=== PATIENT | male | born 1955 | race Caucasian/White ===

== ENCOUNTER 2017-04-16 16:20 | Observation (INO) | payer OTHER ==
--- NOTE | ~2017-04-16 | DS ---
Discharge Summary [facility] [address] [place]. [address] NAME: EMILY FERGUSON : 57 STATUS : DIS José Luis PAT#: [id number] AGE: 62 ADM/REG DATE : 04/16/17 MR#: [id number] REPORT SERV DATE: 04/18/17 DICTATED BY: ERIN CHRIS DATE: 04/17/17 REPORT STATUS : Draft TRANSCRIBED BY: MODL DATE: 04/17/17 ADMISSION DATE: 04/16/2017 DISCHARGE DATE: 04/17/2017 PRINCIPAL DIAGNOSIS: Chest pain due to psychological stress. SECONDARY DIAGNOSES: Elevated blood pressure without hypertension and near syncope, headache. HISTORY OF PRESENT ILLNESS: Please see Dr. Verduzco's dictation on 04/16/2017. HOSPITAL COURSE: Admitted with an episode of chest pain that was very sharp radiating between his shoulder blades and reproducible with palpation, associated with a headache. Upon arrival to emergency department, he had a negative EKG, negative troponins, and a negative CT scan of the brain, and for unclear indications and negative CT of the abdomen he was admitted for a stress test; however, upon talking to him on the morning of 04/17/2017 I was much more concerned about the possibility of dissecting aorta versus pulmonary embolus versus pericarditis given the reproducibility and location, quality, and reproducibility of the pain. A CTA was done on a stat basis which actually was found to be negative; however, it was also seen that he had virtually no coronary calcification putting him at extreme low risk for myocardial ischemia and no further cardiac workup was therefore indicated. 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 It was felt that it would be best to take a week off from work prior to starting back, but no further medication prescriptions were necessary. Blood pressure had been better. He felt much better on 04/17/2017 and he was released following up with [facility] Solano in one to two weeks. DICTATED BY: Steph Cruz/RUFINO Erin Chris M.D. / [id number] CC: Steph Cruz M.D.
--- NOTE | ~2017-04-16 | HP ---
History And Physical [id number] [facility]. [address] NAME: EMILY FERGUSON : 57 STATUS : ADM José Luis PAT#: [id number] AGE: 62 ADM/REG DATE : 04/16/17 MR#: [id number] REPORT SERV DATE: 04/16/17 DICTATED BY: ARNIE FLORES DATE: 04/16/17 REPORT STATUS : Draft TRANSCRIBED BY: MODL DATE: 04/16/17 DATE OF ADMISSION: 04/16/2017 CHIEF COMPLAINT: Chest pain. HISTORY OF PRESENT ILLNESS: Obtained from the patient as well as the patient's present at bedside and emergency room documents. There are no prior medical records available for us to review. According to the information available, the patient is a pleasant 62-year-old white man with no significant past medical history who comes into the emergency room by ambulance from [facility] due to chest pain, near-syncopal episode with abdominal pain. The patient states that he starting experiencing last night some abdominal pain and cramping in the mid abdomen as well as the chest pain in the middle of the chest as well as headache over the "top of the head towards the occipital area." The patient was about to go to bed and had very poor rest, could not sleep due to above symptoms. The chest pain as that time was not exertional, was midsternum, not radiating. Had some nausea. He did not take any particular medications over the counter for it. Has tried several times to go to the bathroom thinking that he may have diarrhea or "stomach bug," but he has not produced any stool and has not changed his symptoms. The pain was 6/10 in intensity. In the morning, when he was ready to go to work, he continued to feel very weak in bed with similar symptoms of chest discomfort. Throughout the day, he apparently "did not look good" and he was advised to be checked out with a local clinic in [place], [place]. 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 He was noticed to be hypertensive with systolic blood pressure of 190/110 as per his recollection and the physician there called EMS to come to the emergency room to be evaluated for any possible cardiac event. The patient denies any diaphoresis or any palpitations. There are no prior symptoms of shortness of breath or diaphoresis or dyspnea on exertion. No coughing. No fever or chills. No recent diarrhea. No one else sick around him. He stated he has been feeling lightheaded, almost like passing out as it happened last night with the headache mentioned above and this morning when he was ready to get up on the bed. There are no klcp-tly-ijqccrc medications taken. No vomiting. No diarrhea. No constipation. No other change in bowel movement pattern. No dysuria or increased urinary frequency. Presently, the patient feels much better. There is no headache presently. No chest pain. The patient had received Zofran and a small dose of Dilaudid IV with no symptoms presently. In the emergency room, after initial investigation, the patient was referred to the hospitalist service for further management and evaluation. PAST MEDICAL HISTORY: There is no real past medical history present. PAST SURGICAL HISTORY: Significant for cervical spine surgery for spondylosis by Dr. Li, history of cholecystectomy and appendectomy in the past, history of couple of skin cancers removed from the face several years ago. SOCIAL HISTORY: He is , lives with family. He does not smoke. He quit smoking over 25 years ago. He drinks occasionally a couple of beers on the weekend in very rare social situations. Denies illicit recreational drug abuse. 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. [address] NAME: EMILY FERGUSON : 57 STATUS : ADM José Luis PAT#: [id number] AGE: 62 ADM/REG DATE : 04/16/17 MR#: [id number] REPORT SERV DATE: 04/16/17 DICTATED BY: ARNIE FLORES DATE: 04/16/17 REPORT STATUS : Draft TRANSCRIBED BY: RUFINO DATE: 04/16/17 [facility] department in [facility]. FAMILY HISTORY: Significant for coronary artery disease in both of his parents, possible some "old age diabetes" as per the patient's in his mother. He is the only child. ALLERGIES: NO KNOWN DRUG ALLERGIES. HOME MEDICATIONS: According to the list provided, the patient is supposed to take only over- the-counter medications. There are no regular prescribed medications. Supposedly, he takes giog-zlp-kyjvirg vitamin C 500 mg p.o. daily, Zyrtec 5 mg p.o. daily, and vitamin B12 at 100 mcg p.o. daily. REVIEW OF SYSTEMS: Per H and P, otherwise, negative in all review of systems. Please note, a comprehensive review of system was obtained and pertinent positives are included in the H and P. PHYSICAL EXAMINATION: GENERAL: Pleasant, cooperant, in no acute distress at this moment. VITAL SIGNS: Upon arrival in the emergency room, blood pressure 160/85 (by report at the physician's office in [place], [place], blood pressure was 190/110), pulse 70, respiratory rate 18, temperature 97.5, oxygen saturation 100% on 4 L by nasal cannula, presently 100% on room air. HEENT: Pupils equal, round, and reactive to light. Extraocular movements intact. Throat, mild erythema, no exudate. NECK: Supple. No JVD. No bruits. No thyromegaly. No lymph nodes. LUNGS: Bilateral air entry. Clear bilaterally. No reproducible chest pain. HEART: Positive S1 and S2. Regular rate and rhythm. No murmur. No rub. No gallop. PMI not displaced by palpation. ABDOMEN: Positive bowel sounds. Soft, with mild but diffuse abdominal tenderness. No guarding. No hepatosplenomegaly. No rebound tenderness. EXTREMITIES: Full range of motion. +2 pulses. No clubbing, no cyanosis, no edema. No calf tenderness. NEUROLOGIC: Alert and oriented x3. Grossly nonfocal. Cranial nerves 2 through 12 grossly intact. Motor strength 5/5 symmetrical, bilateral. Deep tendon reflexes 2/2 symmetrical, bilateral. Coordination intact. There are no meningeal signs. BACK: Decreased range of motion, but no focal localized tenderness. No CVA tenderness. SKIN: No bruises, no rashes, no lacerations. SIGNIFICANT LABORATORY DATA: EKG (personal reading) showed normal sinus rhythm at 71 beats per minute. No acute ST elevation. No old EKG available for comparison. Chest x-ray (personal reading) showed no acute infiltrate. White cell count 7.1, hemoglobin 13.3, platelet count 265. INR 1.1. Lactate level 1.7, which is within normal limits. Sodium 144, potassium 4.2, chloride 112, carbon dioxide 23, BUN 14, creatinine 0.93, glucose 100. Calcium 8.6, magnesium 2. Liver function tests within normal limits. Lipase 78, which is within normal limits. Troponin I less than 0.02. Urinalysis within normal limits, negative. CT scan of the head/brain by preliminary report from the emergency room showed no acute brain pathology. CT scan of the abdomen and pelvis showed no bowel obstruction or History And Physical [address] [address] NAME: EMILY FERGUSON : 57 STATUS : ADM José Luis PAT#: [id number] AGE: 62 ADM/REG DATE : 04/16/17 MR#: [id number] REPORT SERV DATE: 04/16/17 DICTATED BY: ARNIE FLORES DATE: 04/16/17 REPORT STATUS : Draft TRANSCRIBED BY: RUFINO DATE: 04/16/17 inflammation; diverticulosis without diverticulitis; mild diffuse fatty infiltration of the liver; prostate gland is enlarged, 5.3 x 3.5 x 4.5 cm (full report attached to chart and discussed with the patient and family). ASSESSMENT AND PLAN AND PROBLEM LIST: The patient is a pleasant 62-year-old man with no prior significant medical history, admitted with chest pain, elevated blood pressure, and nonspecific symptoms of abdominal pain and headache. IMPRESSION: 1. Chest pain (atypical), but with moderate risk for cardiac etiology. For all the above, we are going to admit on the hospitalist service in [facility]. We are going to rule out for DC by serial CK and troponin I and evaluate further with a nuclear medical stress test and 2D echo. Evaluate for other cardiovascular risk factors including a lipid profile and BNP. We are going to continue aspirin 162 mg p.o. daily. 2. Elevated blood pressure without diagnosis of hypertension. Continue to monitor. Use IV hydralazine p.r.n. for increased blood pressure. Recommend decreasing amount of caffeinated drinks at this moment. Consider blood pressure treatment and follow up as an outpatient. 3. Headache and near-syncopal episode. Check orthostatic vital sign changes. Symptomatic treatment. Continue aspirin. Obtain bilateral carotid Doppler ultrasound. Consider further investigation with an MRI if the patient continues to have symptoms. Provide gentle IV hydration. 4. Abdominal pain, nonspecific, with benign laboratory data, benign physical exam, and CT scan. We are going to continue to monitor clinically, treat symptomatically. Advance diet as tolerated. If any loose stools, we are going to send the stools for studies as per protocol. Use Protonix 40 mg p.o. daily. PROGNOSIS: Moderately good for this admission. Discussed with patient and the patient's family present at bedside. Questions were answered in full. Please note also the written H and P and written orders and instructions. Please note, the patient is a full code at this moment as discussed with the patient at bedside. RF/MODL Arnie Flores M.D. / [id number] CC: Steph Cruz M.D.
[2017-04-16 15:13] LABS: BASOPHILS 0.1 %; BASOPHILS ABSOLUTE 0.01 10/3/uL (0.0-0.16); EOSINOPHILS 1.4 %; HEMATOCRIT 39.3 % (40.0-51.0); HEMOGLOBIN 13.3 g/dL (13.6-17.8); IMMATURE GRANULOCYTES 0.1 %; IMMATURE GRANULOCYTES ABSOLUTE 0.01 10/3/uL (0.0-0.11); LYMPHOCYTES 30.8 %; LYMPHOCYTES ABSOLUTE 2.19 10/3/uL (0.67-4.30); MEAN CORPUS HGB CONC 33.8 g/dL (32.0-36.0); MEAN CORPUSCULAR HEMOGLOB 29.5 pg (26.0-34.0); MEAN CORPUSCULAR VOLUME 87.1 fL (80-100); MEAN PLATELET VOLUME 9.4 fL (9.2-13.0); MONOCYTES ABSOLUTE 0.64 10/3/uL (0.21-1.20); NEUTROPHILS 58.6 %; NEUTROPHILS ABSOLUTE 4.17 10/3/uL (2.02-8.40); PLATELET COUNT 265 10/3/uL (150-400); RBC DISTRIBUTION WIDTH 13.3 % (12.0-16.0); RED CELL COUNT 4.51 10/6/uL (4.7-6.1); WHITE BLOOD CELLS 7.1 10/3/uL (4.5-10.5)
[2017-04-16 15:14] LABS: MANUAL DIFF NO %
[2017-04-16 15:21] LABS: INTERNATIONAL NORMAL RATI 1.1 UNITS (-); PARTIAL THROMBO TIME 28.6 SEC (22.5-37.2); PROTIME (NOT ORD) 13.6 SEC (12.0-14.5)
[2017-04-16 15:28] LABS: ALBUMIN 3.7 G/DL (3.5-5.0); ALKALINE PHOSPHATASE 66 U/L (45-117); CALCIUM, SERUM 8.6 MG/DL (8.5-10.4); CHEST PAIN PROFILE TAT 0 Hrs 19 Mins; CHLORIDE, SERUM 112 MMOL/L (96-112); CO2 (CARBON DIOXIDE) 23 MMOL/L (24-34); CREATININE 0.93 MG/DL (0.70-1.30); DIRECT BILIRUBIN 0.2 MG/DL (0.0-0.4); GFR AFRICAN AMERICAN 102 ML/MIN (>=60); GFR NON AFRICAN AMERICAN 88 ML/MIN (>=60); GLUCOSE, SERUM 100 MG/DL (60-99); INDIRECT BILIRUBIN(NOT ORDER) 0.7 MG/DL (0.1-0.9); POTASSIUM, SERUM 4.2 MMOL/L (3.5-5.3); SGOT(AST) 12 U/L (5-40); SGPT(ALT) 26 U/L (5-65); SODIUM, SERUM 144 MMOL/L (135-148); TOTAL BILIRUBIN 0.9 MG/DL (0-1.2); TOTAL PROTEIN 6.9 G/DL (6.0-8.5); TROPONIN I <0.02 NG/ML (<0.05)
[2017-04-16 15:30] LABS: BUN (BLOOD UREA NITROGEN) 14 MG/DL (6-23)
[2017-04-16 15:36] LABS: ASCORBIC ACID (UR NOT ORDER) 40 (NEG); BILIRUBIN, URINE NEGATIVE (NEG); ER URINALYSIS TAT 0 Hrs 18 Mins; KETONE, URINE NEGATIVE (NEG); LEUKOCYTE ESTERASE(NOT OR NEG (NEG); NITRITE (URINE) NEG (NEG); WBC (NOT ORDERED) (RFLEX) < 1 (0-5)
[~2017-04-16 16:20] MED LIST: B12100T PO; CETIRIZINE HCL5 MG PO; FLEX PO; PERCOCET1 TA4 PO; STERAPRED DS10 MG; VITC500 PO
[2017-04-16] MEDS ORDERED: GLAUCOMA EYE DROPS OPH (16:29)
[2017-04-16 22:20] LABS: CK-MB 0.8 NG/ML; CPK 53 U/L (0-200); PHOSPHORUS, SERUM 1.6 MG/DL (2.5-4.5)
[2017-04-16 23:31] LABS: CPK 47 U/L (0-200); TROPONIN I <0.02 NG/ML (<0.05)
[2017-04-16 23:33] LABS: CK-MB < 0.5 NG/ML
[2017-04-17 04:27] LABS: BASOPHILS 0.2 %; BASOPHILS ABSOLUTE 0.01 10/3/uL (0.0-0.16); EOSINOPHILS 2.4 %; EOSINOPHILS ABSOLUTE 0.15 10/3/uL (0.0-0.53); HEMATOCRIT 37.3 % (40.0-51.0); HEMOGLOBIN 12.5 g/dL (13.6-17.8); LYMPHOCYTES 47.5 %; LYMPHOCYTES ABSOLUTE 2.93 10/3/uL (0.67-4.30); MEAN CORPUS HGB CONC 33.5 g/dL (32.0-36.0); MEAN CORPUSCULAR HEMOGLOB 29.6 pg (26.0-34.0); MEAN CORPUSCULAR VOLUME 88.2 fL (80-100); MONOCYTES 6.8 %; MONOCYTES ABSOLUTE 0.42 10/3/uL (0.21-1.20); NEUTROPHILS 43.1 %; NEUTROPHILS ABSOLUTE 2.66 10/3/uL (2.02-8.40); PLATELET COUNT 198 10/3/uL (150-400); RBC DISTRIBUTION WIDTH 13.5 % (12.0-16.0); RED CELL COUNT 4.23 10/6/uL (4.7-6.1); WHITE BLOOD CELLS 6.2 10/3/uL (4.5-10.5)
[2017-04-17 04:28] LABS: MANUAL DIFF NO %
[2017-04-17 04:47] LABS: ALBUMIN 3.4 G/DL (3.5-5.0); BUN (BLOOD UREA NITROGEN) 16 MG/DL (6-23); CALCIUM, SERUM 8.7 MG/DL (8.5-10.4); CHLORIDE, SERUM 109 MMOL/L (96-112); CHOL/HDL RATIO(NOT ORDER) 3.2 (0-5); CHOLESTEROL 125 MG/DL (< 200); CO2 (CARBON DIOXIDE) 24 MMOL/L (24-34); CPK 47 U/L (0-200); CREATININE 1.02 MG/DL (0.70-1.30); GFR AFRICAN AMERICAN 92 ML/MIN (>=60); GFR NON AFRICAN AMERICAN 79 ML/MIN (>=60); GLUCOSE, SERUM 95 MG/DL (60-99); HDL CHOLESTEROL 39 MG/DL (> 39); LDL CHOLESTEROL 64 MG/DL (< 130); NON-HDL CHOLESTEROL 86 MG/DL (< 160); POTASSIUM, SERUM 4.4 MMOL/L (3.5-5.3); SODIUM, SERUM 140 MMOL/L (135-148); TRIGLYCERIDE 111 MG/DL (< 150); TROPONIN I <0.02 NG/ML (<0.05)
[2017-04-17 04:48] LABS: CK-MB 0.7 NG/ML; PHOSPHORUS, SERUM 3.2 MG/DL (2.5-4.5)
[2017-04-17 15:01] LABS: D-DIMER QUANTITATIVE < 0.27 ug/mLFEU (< 0.50)
[2017-04-17 15:41] LABS: SED RATE 6 MM/HR (0-15)
== END 2017-04-17 17:24 | disposition home or self-care (01) ==
LOC: ER 16:20 → CDU1 17:07 → CDU2 18:59
PROVIDERS: Emergency Medicine; Internal Medicine
DX: R07.9 Chest pain, unspecified (principal); I10 Essential (primary) hypertension; R55 Syncope and collapse; R10.9 Unspecified abdominal pain; Z90.49 Acquired absence of other specified parts of digestive tract; Z85.828 Personal history of other malignant neoplasm of skin; Z98.890 Other specified postprocedural states; Z87.891 Personal history of nicotine dependence
CPT/HCPCS: 70450; 71010; 71275; 74176; 80048; 80061; 80069; 80076; 81001; 82550; 82553; 83605; 83690; 83735; 83880; 84100; 84439; 84443; 84484; 85025; 85379; 85610; 85652; 85730; 93005; 93306; 96372; 96374; 99285; A9270-GY; G0378; J1170; Q9967